=== PATIENT | male | born 1950 | race Caucasian/White ===

== ENCOUNTER 2024-07-31 19:19 | Emergency (ER) | payer MEDICARE, BC ==
[~2024-07-31] VITALS: Ht 185.4 cm; Wt 88.5 kg
[2024-07-31 20:07] VITALS: BP 165/80; PULSE 60; RESP 18; TEMP 97.8; O2SAT 96
[2024-07-31 20:26] LABS: INFLUENZA VIRUS A ANTIGEN POSITIVE (NEG); INFLUENZA VIRUS B ANTIGEN NEGATIVE (NEG)
[2024-07-31 20:50] VITALS: BP 148/76; PULSE 60; RESP 18; TEMP 97.8; O2SAT 96
== END 2024-07-31 20:50 | disposition home or self-care (01) ==
LOC: ER 19:19
DX: J10.1 Influenza due to other identified influenza virus with other respiratory manifestations (principal); Z20.822 Contact with and (suspected) exposure to COVID-19
CPT/HCPCS: 87426; 87804; 99283